=== PATIENT | female | born 1980 | race Caucasian/White ===

== ENCOUNTER 2024-03-04 13:20 | Emergency (ER) | payer OTHER ==
[2024-03-04 14:08] VITALS: BP 122/72; PULSE 109; RESP 18; TEMP 97.8
[2024-03-04] MEDS ORDERED: SODIUM CHLORIDE 0.9% 1,000 ML IV STA (14:09)
[2024-03-04] MEDS ORDERED: ONDANSETRON 4 MG/2 ML VIAL IVP STA (14:13)
--- NOTE | 2024-03-04 14:16 | ED ---
Nausea/Vomiting/Diarrhea HPI - General Source: patient, RN notes reviewed Mode of arrival: ambulatory Limitations: no limitations - History of Present Illness MD complaint: nausea, vomiting, diarrhea Onset/Timin -: days(s) <Mariusz Ching - Last Filed: 03/04/24 14:14> <Zac Donald - Last Filed: 03/20/24 11:21> - General Chief complaint: Nausea/Vomiting/Diarrhea Stated complaint: Vomiting Time Seen by Provider: 03/04/24 13:33 - History of Present Illness Initial comments: Quick note: This is a 43-year-old female presenting with nausea/vomiting/diarrhea x 3 days. Patient endorses eating wild boar and venison chili prior to start of symptoms with only her experiencing current GI issues. Also endorses decreased appetite and unable to hold down food or water. (Mariusz Ching) - Related Data Allergies Allergy/AdvReac Type Severity Reaction Status Date / Time No Known Allergies Allergy Verified 03/04/24 14:05 Review of Systems ROS Other: All systems not noted in ROS Statement are negative. <Mariusz Ching - Last Filed: 03/04/24 14:14> ROS Other: All systems not noted in ROS Statement are negative. <Zac Donald - Last Filed: 03/20/24 11:21> ROS Statement: Those systems with pertinent positive or pertinent negative responses have been documented in the HPI. Past Medical History Past Medical History: No Reported History Past Surgical History: Section Additional Past Surgical History / Comment(s): carpal tunnel Smoking Status: Former smoker Past Alcohol Use History: Rare Past Drug Use History: None Reported <Mariusz Ching - Last Filed: 03/04/24 14:14> General Exam Limitations: no limitations <Mariusz Ching - Last Filed: 03/04/24 14:14> - General Exam Comments Initial Comments: Visual Physical Exam Vital signs reviewed General: Well-appearing, nontoxic, no acute distress. Patient has basin next to her Head: Normocephalic, atraumatic Eyes: PERRLA, EOMI ENT: Airway patent Chest: Nonlabored breathing Skin: No visual rash, normal skin tone Neuro: Alert and oriented 3 Musculoskeletal: No gross abnormalities (Mariusz Ching) Course Vital Signs 03/04/24 14:05 Temperature 97.8 F Pulse Rate 109 H Respiratory 18 Rate Blood Pressure 122/72 O2 Sat by Pulse 99 Oximetry Medical Decision Making <Mariusz Ching - Last Filed: 03/04/24 14:14> - Medical Decision Making I completed the quick note portion of this chart signed DOTTIE Mcallister (Mariusz Ching) - Lab Data Lab Results 03/04/24 03/04/24 Range/Units 14:15 14:15 Urine Color Yellow Urine Appearance Cloudy H (Clear) Urine pH 5.5 (5.0-8.0) Ur Specific Gore 1.030 (1.001-1.035) Urine Protein Trace H (Negative) Urine Glucose (UA) Negative (Negative) Urine Ketones 2+ H (Negative) Urine Blood Moderate H (Negative) Urine Nitrite Negative (Negative) Urine Bilirubin Negative (Negative) Urine Urobilinogen <2.0 (<2.0) mg/dL Ur Leukocyte Esterase Negative (Negative) Urine RBC 3 (0-5) /hpf Urine WBC 1 (0-5) /hpf Ur Squamous Epith Cells 8 H (0-4) /hpf Urine Bacteria Rare H (None) /hpf Urine Mucus Many H (None) /hpf Urine HCG, Qual Not Detected (Not Detectd) Disposition <Mariusz Ching - Last Filed: 03/04/24 14:14> <Zac Donald - Last Filed: 03/20/24 11:21> Clinical Impression: Nausea and vomiting Disposition: LEFT AGAINST MEDICAL ADVICE Referrals: None,Stated [REFERRING] - 1-2 days
[2024-03-04 15:40] LABS: Appearance,Urine Cloudy (Clear); Bacteria,Urine Rare /hpf; Bilirubin,Urine Negative (Negative); Blood,Urine Moderate (Negative); Color,Urine Yellow; Glucose,Urine (UA) Negative (Negative); Ketones,Urine 2+ (Negative); Leukocyte Esterase,Urine Negative (Negative); Mucus,Urine Many /hpf; Nitrite,Urine Negative (Negative); PH, Urine 5.5 (5.0-8.0); Protein,Urine Trace (Negative); RBC,Urine 3 /hpf (0-5); Squamous Epithelial Cell,Urine 8 /hpf (0-4); Urobilinogen,Urine <2.0 mg/dL (<2.0); WBC,Urine 1 /hpf (0-5)
== END 2024-03-04 16:02 | disposition left against medical advice (07) ==
LOC: EC 13:20
DX: R11.2 Nausea with vomiting, unspecified (principal); Z87.891 Personal history of nicotine dependence; Z53.29 Procedure and treatment not carried out because of patient's decision for other reasons
CPT/HCPCS: 81001; 81025; 99284

== ENCOUNTER → 2024-05-19 | Outpatient (CLI) | payer OTHER ==
--- NOTE | 2024-05-19 09:13 | US ---
EXAMINATION TYPE: US abdomen complete DATE OF EXAM: 05/19/2024 COMPARISON: NONE CLINICAL INDICATION: Female, 43 years old with history of R10.12 LEFT UPPER QUADRANT PAIN; LUQ pain TECHNIQUE: Grayscale and color Doppler imaging of the abdomen was performed. FINDINGS: EXAM MEASUREMENTS: Liver Length: 13.7 cm Gallbladder Wall: .2 cm CBD: .3 cm, color Doppler imaging was utilized to isolate the common bile duct for measurement. Spleen: 9.1 cm Right Kidney: 9.7 x 3.5 x 4.6 cm Left Kidney: 9.8 x 3.6 x 3.7 cm CAMPAIGN CONSULTANT NOTES: Pancreas: wnl Liver: wnl, no dilated ducts, masses or cysts. Gallbladder: No stones seen Evidence for sonographic Munguia's sign: No CBD: wnl Spleen: wnl Right Kidney: wnl, No hydronephrosis, calculi or masses seen Left Kidney: wnl, No hydronephrosis, calculi or masses seen Upper IVC: wnl Abd Aorta: wnl The liver is homogenous. The intrahepatic portion of the IVC and proximal abdominal aorta are within normal limits. There is no evidence of cholelithiasis. Common bile duct is unremarkable. The visu alized portions of the pancreas are homogenous. The spleen is unremarkable. Kidneys are symmetric a nd free of hydronephrosis. No renal lesions are seen. IMPRESSION: Unremarkable abdominal ultrasound. [facility] José Gilmore, , 05/19/2024 9:11 AM
== END | disposition home or self-care (01) ==
LOC: RADUSWWP 08:33
PROVIDERS: ATTEND Emergency Medicine
DX: R10.12 Left upper quadrant pain (principal)
CPT/HCPCS: 76700